=== PATIENT | female | born 1995 | race African-American/Black ===

== ENCOUNTER 2017-01-22 10:56 | Emergency (ER) | payer OTHER ==
[~2017-01-22 10:56] MED LIST: BACTRIM DS TABL1 TA1 PO; PYRIDIUM100 MG PO
[2017-01-22 12:27] LABS: URINE SOURCE CLEAN CATCH
[2017-01-22 12:42] LABS: URINE APPEARANCE CLEAR; URINE BILIRUBIN NEG (NEG); URINE BLOOD NEG (NEG); URINE COLOR YELLOW; URINE GLUCOSE NEG (NEG); URINE KETONE TRACE (NEG); URINE LEUKOCYTE ESTERASE NEG (NEG); URINE NITRATE NEG (NEG); URINE PH 5.5 (5-8); URINE PROTEIN NEG (NEG); URINE SPECIFIC GRAVITY 1.026 (1.003-1.035)
[2017-01-22 12:57] LABS: CULTURE INDICATED? NO
== END 2017-01-22 13:30 | disposition home or self-care (01) ==
LOC: CED 10:56 → CFTX 10:56
PROVIDERS: Nurse Practitioner
DX: R30.0 Dysuria (principal); M54.5 Low back pain
CPT/HCPCS: 81003; 84703; 99283

== ENCOUNTER 2017-02-02 00:19 | Emergency (ER) | payer OTHER | END 2017-02-02 01:26 | disposition left against medical advice (07) | LOC: CED 00:19 | DX: Z53.21 Procedure and treatment not carried out due to patient leaving prior to being seen by health care provider (principal) ==